=== PATIENT | male | born 1960 | race Caucasian/White ===

== ENCOUNTER → 2017-05-08 | Outpatient (CLI) | payer OTHER ==
[~2017-05-08] MED LIST: LIDOCAINE 1% 300 MG/30 ML SDV ONE
== END ==
LOC: FIMAGING 11:58
PROVIDERS: ATTEND Otolaryngology
PROC: 0GBG3ZX Excision of Left Thyroid Gland Lobe, Percutaneous Approach, Diagnostic (ICD-10-PCS; principal; 2017-05-08)
DX: C73 Malignant neoplasm of thyroid gland (principal)

== ENCOUNTER → 2017-08-24 | Outpatient (CLI) | payer OTHER | LOC: FIMAGING 12:47 | PROVIDERS: ATTEND Internal Medicine Endocrinology, Diabetes & Metabolism | DX: Z08 Encounter for follow-up examination after completed treatment for malignant neoplasm (principal); C73 Malignant neoplasm of thyroid gland | CPT/HCPCS: 78018; 79005; A9517 ==